=== PATIENT | male | born 1995 | race Caucasian/White ===

== ENCOUNTER 2019-06-21 20:58 | Emergency (ER) | payer OTHER ==
[~2019-06-21] VITALS: Ht 185.4 cm; Wt 74.8 kg
[~2019-06-21 20:58] MED LIST: ALBU90OI; AMOCLA500 PO; AMOCLA875 PO; ARIP10; Amoxicillin500 MG PO; METPHE10; METPHE20 PO; METPHE20CR; METPHE20CR PO; NALTREXONE; OXCA300; PREDNISONE; PROM25
[2019-06-21 21:52] LABS: Hematocrit 36.8 % (37.0-53.0); Hemoglobin 12.3 g/dL (13.5-17.5); Mean Corpuscular HGB 29.6 pg (26.0-34.0); Mean Corpuscular HGB Conc 33.4 g/dL (31.5-36.5); Mean Corpuscular Volume 89 fL (80-100); Mean Platelet Volume 9.7 fL (9.1-12.4); Platelet Count 168 K/mm3 (150-400); RDW Coefficient Variation 12.8 % (11.7-14.2); RDW Standard Deviation 41.6 fL (35.1-46.3); Red Blood Cell Count 4.16 M/mm3 (4.30-5.90); White Blood Cell Count 8.23 K/mm3 (4.00-11.30)
[2019-06-21 22:09] LABS: BAND PERCENT MAN 22 % (0-8); BASOPHILS ABSOLUTE MAN 0.08 K/mm3 (0.00-0.23); BASOPHILS PERCENT MAN 1 % (0-2); EOSINOPHILS ABSOLUTE MAN 0.16 K/mm3 (0.00-0.68); EOSINOPHILS PERCENT MAN 2 % (0-6); LYMPHOCYTES ABSOLUTE MAN 0.08 K/mm3 (0.84-5.20); LYMPHOCYTES PERCENT MAN 1 % (21-46); MONOCYTES PERCENT MAN 0 % (4-13); SEG NEUTROPHILS PERCENT MAN 74 % (41-73); TOTAL CELLS COUNTED 100
[2019-06-21 22:13] LABS: Anion Gap 8 mmol/L (6-16); Blood Urea Nitrogen 24 mg/dL (8-24); Bun/Creatinine Ratio 25.6 (12.0-20.0); CO2, Blood 25 mmol/L (21-32); CPK Creatine Kinase 335 U/L (39-308); Calcium, Blood 8.2 mg/dL (8.5-10.1); Chloride, Blood 108 mmol/L (98-108); Creatine Kinase MB 2.5 ng/mL (0.0-3.6); Creatine Kinase MB Index 0.7 (0.0-4.0); Creatinine, Blood 0.94 mg/dL (0.60-1.20); Glomerular Filtration Rate >60 (60-); Glucose, Blood 99 mg/dL (70-99); Sodium, Blood 141 mmol/L (136-145)
== END 2019-06-22 23:28 | disposition home or self-care (01) ==
LOC: ER 20:58
PROVIDERS: Emergency Medicine
DX: F15.10 Other stimulant abuse, uncomplicated (principal); J06.9 Acute upper respiratory infection, unspecified; F17.200 Nicotine dependence, unspecified, uncomplicated; Z88.2 Allergy status to sulfonamides
CPT/HCPCS: 36415; 80048; 82550; 82553; 85025; 93005; 93010; 96361; 96374; 96375; 96376; 99283-25; J1885; J2060; J7030

== ENCOUNTER 2020-01-07 19:55 | Emergency (ER) | payer OTHER ==
[~2020-01-07] VITALS: Ht 185.4 cm; Wt 77.1 kg
[2020-01-07] MEDS ORDERED: ATHLETE'S FOO35.4 GM TOP (20:49)
== END 2020-01-07 20:54 | disposition home or self-care (01) ==
LOC: ER 19:55
DX: T25.222A Burn of second degree of left foot, initial encounter (principal); T25.221A Burn of second degree of right foot, initial encounter; B35.3 Tinea pedis; L29.1 Pruritus scroti; F17.200 Nicotine dependence, unspecified, uncomplicated; Z88.2 Allergy status to sulfonamides; X58.XXXA Exposure to other specified factors, initial encounter
CPT/HCPCS: 99283